=== PATIENT | male | born 1985 | race Caucasian/White ===

== ENCOUNTER 2024-11-27 22:52 | Emergency (ER) | payer OTHER, BC ==
[2024-11-27 23:03] VITALS: BP 139/101; PULSE 88; RESP 18; TEMP 98.4; BMI 26.5
== END 2024-11-28 01:13 | disposition home or self-care (01) ==
LOC: FER 22:52
DX: S09.90XA Unspecified injury of head, initial encounter (principal); V49.40XA Driver injured in collision with unspecified motor vehicles in traffic accident, initial encounter
CPT/HCPCS: 70450-TC; 99284-25